=== PATIENT | female | born 1960 | race Caucasian/White ===

== ENCOUNTER → 2018-05-25 | Outpatient (CLI) | payer BC, MEDICAID ==
--- NOTE | 2018-05-25 13:01 | REP ---
LEFT FOOT, FOUR VIEWS: HISTORY: Pain. There is no acute fracture or dislocation. The joint spaces are normal in appearance. IMPRESSION: There is no acute fracture or dislocation. Electronically Signed by Juan Manuel Jade MD 05/25/2018 01:28 P
== END ==
LOC: M ADAMS 12:05
PROVIDERS: ATTEND Physician Assistant
DX: M79.672 Pain in left foot (principal)